=== PATIENT | male | born 1950 | race Caucasian/White ===

== ENCOUNTER 2017-01-23 06:55 | Inpatient (IN) | payer MEDICARE, OTHER ==
[~2017-01-23] VITALS: Ht 175.3 cm; Wt 113.4 kg
[~2017-01-23 06:55] MED LIST: ANASTROZOLE1 MG PO; ARMOUR THYROID60 MG PO; ASCORBIC ACID; B COMPLEX1 EACH PO; CALCIUM + VITA1 EACH PO; CARVEDILOL12.5 MG PO; CHROMIUM PICO200 MCG PO; COPPER2 M1 PO; COPPER2 MG PO; CORTEF10 MG PO; CYCLOBENZAPRINE10 MG PO; DHEA25 M1 PO; ELIQUIS5 MG PO; GLUCOSAMINE1000 MG PO; HYDROCORTISONE5 MG PO; LEVAQUIN500 MG PO; MAGNESIUM; MEGA TAURINE1000 MG PO; METHYLFOLATE PO; MSM1000 M1 PO; NORCO 5-325 TA1 EACH PO; PANCREATIN 8X1 GM PO; PHENYTOIN SODI100 MG PO; POTASSIUM CHLO10 ME1 PO; POTASSIUM CITRATE PO; PROBIOTIC1 EAC1 PO; SELENIUM200 MC2 PO; SELENIUM200 MCG PO; VITAMIN A10000 UNIT PO; VITAMIN B-125000 MC1 PO; VITAMIN D35000 UNIT PO; VITAMIN D5000 UNIT PO; ZINC50 M1 PO; ZITHROMAX250 MG PO; [UNRECOGNIZED DRUG - OTHER]; [UNRECOGNIZED DRUG - OTHER]; [UNRECOGNIZED DRUG - OTHER] MISC; [UNRECOGNIZED DRUG - OTHER] PO; [UNRECOGNIZED DRUG - OTHER] PO; [UNRECOGNIZED DRUG - OTHER] TOP
[2017-02-24] MEDS ORDERED: BISOPROLOL FUMA10 MG PO (06:29)
[2017-02-24] MEDS ORDERED: ANASTROZOLE1 MG PO (06:30)
[2017-02-24] MEDS ORDERED: ATP25 MG PO (06:32)
[2017-02-24] MEDS ORDERED: HYDROCORTISONE5 MG PO (17:00)
[2017-02-24] MEDS ORDERED: TESTOSTERONE75 GM TOP (17:09)
[2017-02-26] MEDS ORDERED: OXYCODONE HCL5 MG PO (08:31)
[2017-02-26] MEDS ORDERED: HYDROCODON-ACE1 EA11 PO (08:31)
--- NOTE | 2017-03-03 09:57 | OR ---
[facility] [address], [place] [address] Signed DATE OF SERVICE: 02/26/2017 ADMISSION DIAGNOSIS: Degenerative joint disease, right knee. POSTOPERATIVE DIAGNOSIS: Degenerative joint disease, right knee. PROCEDURE PERFORMED: Right total knee arthroplasty. BRIEF HISTORY: Mr. Baldwin is a 58-year-old gentleman, who has undergone nonoperative treatment for his degenerative joint disease and had had no recent success. Risks, benefits, and alternatives of operative treatment were discussed with him. He elected to proceed. Once consent was obtained, he was taken to the operating room. After adequate anesthesia, he underwent the above-named procedures. He tolerated this well. He was taken to recovery room, subsequently to orthopedic floor. He was placed on oral pain medication of oxycodone and Stevens with good pain relief. DVT prophylaxis was initially Xarelto 10 mg p.o. daily. He will be switched to his Eliquis now. He was seen by Physical Therapy and able to ambulate him down the hallway and down the stairs by the day of discharge. He will be discharged to home with outpatient physical therapy and above medications. He will notify me if there are any problems in the interim. Joanne Mc MD BA/Sondral /[id number] Electronically Signed By: JOANNE MC MD 03/03/17 0957 PATIENT NAME: LISSETT BALDWIN OPERATIVE REPORT DATE OF : 46 PHYSICIAN: JOANNE MC MD REPORT #: [id number] REPORT IS CONFIDENTIAL AND NOT TO BE RELEASED WITHOUT AUTHORIZATION
== END 2017-02-26 13:05 | disposition home or self-care (01) | DRG 470 ==
LOC: DSVR 02-24 05:45 → MS 02-24 05:45
PROVIDERS: ADMIT Specialist
PROC: 0SRC0J9 Replacement of Right Knee Joint with Synthetic Substitute, Cemented, Open Approach (ICD-10-PCS; principal; 2017-02-24 06:45)
DX: M17.11 Unilateral primary osteoarthritis, right knee (principal); E27.40 Unspecified adrenocortical insufficiency; I50.20 Unspecified systolic (congestive) heart failure; E03.9 Hypothyroidism, unspecified; G47.33 Obstructive sleep apnea (adult) (pediatric); Z79.01 Long term (current) use of anticoagulants; I48.2 Chronic atrial fibrillation; I11.0 Hypertensive heart disease with heart failure; I25.10 Atherosclerotic heart disease of native coronary artery without angina pectoris; G89.18 Other acute postprocedural pain
CPT/HCPCS: 01402; 36415; 64447; 76942; 80048; 85025; 94762; 97110; 97116; 97162; C1713; C1776; J0690; J1100; J1720; J1885; J2250; J2274; J2550; J2704; J2795; J3010; J7120

== ENCOUNTER 2021-07-02 05:40 | Day surgery (SDC) | payer MEDICARE, OTHER ==
--- NOTE | 2021-06-19 17:03 | NUR ---
DOS: 07-02-21 STAIRS: 3 STEPS INTO THE HOME WALKER: HAS ONE AND INSTRUCTED TO BRING WITH HIM THE DAY OF SURGERY. ALSO HAS A CANE WHEN HE IS ABLE TO USE IT. SHOWER: SMALL STEP INTO THE SHOWER WITH A SHOWER CHAIR AND GRAB BAR TOLITES: ARE TALL AND HAS A RISER IF NOT TALL ENOUGH. APPOINTMENT AND PHYSICAL THERAPY: ROEL GET HIM TO ALL HIS APPOINTMENT AND TAKE CARE OF HIM AT THE HOUSE. PT ALSO USES CPAP AND ROEL BRING IT WITH HIM ON THE DAY OF SURGERY.
[~2021-07-02] VITALS: Ht 175.3 cm; Wt 104.5 kg
[~2021-07-02 05:40] MED LIST changes: +ATP25 MG PO; +BISOPROLOL FUMA10 MG PO; +DIGOXIN125 MCG PO; +HYDROCODON-ACE1 EA11 PO; +OXYCODONE HCL5 MG PO; +TESTOSTERONE75 GM TOP
[2021-07-02] MEDS ORDERED: OXYCODONE HCL5 MG PO (09:13)
[2021-07-02] MEDS ORDERED: SENNA LAX8.6 MG PO (09:14)
[2021-07-02] MEDS ORDERED: GABAPENTIN300 MG PO (09:14)
--- NOTE | 2021-07-02 10:20 | NUR ---
PATIENT BACK TO ROOM FROM PACU ON RA. RECEIVED REPORT FROM DARÍO LENZ. PATIENT IS AWAKE. VSS. RATES PAIN 2/10 AND DENIES NAUSEA. PATIENTS UPPER DRESSING HAS A SMALL AMOUNT OF RED DRAINAGE. 2 LOWER DRESSINGS ARE CLEAN, DRY, AND INTACT. CRYO CUFF IN PLACE. GIVEN PAIN RX AND SHE LEFT TO GO TO PHARMACY. WATER, JELLO, AND CRACKERS GIVEN TO CAMILLA. CALL LIGHT WITHIN REACH.
--- NOTE | 2021-07-02 10:32 | NUR ---
[facility] ARRIVED IN PACU REACTIVE WITH OPA IN PLACE. 0911 OPA REMOVED. MOVING BILAT LEGS. 0915 PELVIS XRAY DONE. PT BENDING R LEG. REMINDED TO KEEP STRAIGHT. 0920 DR AT BEDSIDE. VERBAL ORDER GIVEN TO PLACE ADDUCTION SPLINT TO HELP KEEP RIGHT LEG STRAIGHT. 0925 SPLINT [address]ACED. PT PULLING AT CLOTHES AND IV TUBING. REMINDED OF PERSON, PLACE AND TIME. 0940 C/O R HIP PAIN AND TRYING TO PULL GOWN OFF. REMINDED PT SURGERY IS OVER. 0945 ANESTHESIA AT BEDSIDE AND BLOCK DONE. PT TOLERATED WELL. 1000 PAIN DOWN TO DULL ACHE. UNABLE TO RATE AT THIS TIME. 1005 TO DS. AT BEDSIDE. 1015 CRYO CUFF PLACED ON R HIP. REPORT GIVEN TO RN.
--- NOTE | 2021-07-02 11:37 | NUR ---
PATIENT AWAKE AND LAYING IN BED. RATES PAIN 1/10. DENIES NAUSEA. VSS. UPPER DRESSING HAS A SAMLL AMOUNT OF DRAINAGE. 2 LOWER DRESSINGS ARE CLEAN, DRY, AND INTACT. CRYO CUFF IN PLACE. PATIENT HAS BEEN DRINKING WATER. CALL LIGHT WITHIN REACH.
--- NOTE | 2021-07-02 12:40 | NUR ---
CAMILLA VOIDED 325ML USING THE URINAL AT BEDSIDE. RECHECKED BP WITH NORMAL RESULTS. LUNCH ORDERED.
--- NOTE | 2021-07-02 13:25 | NUR ---
PATIENT AWAKE LAYING IN BED. VSS. RATES PAIN 1/10. DENIES NAUSEA. UPPER DRESSING HAS A SMALL AMOUNT OF RED DRAINAGE AND THE TWO LOWER DRESSINGS ARE CLEAN, DRY, AND INTACT. CRYO CUFF IN PLACE. AT BEDSIDE. CALL LIGHT WITHIN REACH.
--- NOTE | 2021-07-02 13:50 | NUR ---
1350-PHYSICAL THERAPY IN WITH PATIENT. 1355-PATIENT STATES WHEN HE LIFTED HIS RIGH LEG OFF THE BED HE "FELT A LOUD POP" IN HIS RIGHT GROIN. RATES PAIN "12/10" REQUESTING PAIN MEDICATION. 1405-TALKED TO DR. ORTIZ ABOUT SITUATION. DR. ORTIZ STATES THAT WILL HAPPEN WITH A HIP.. 1409-REASSURED PATIENT ABOUT THE INFOMRATION RECEIVED FROM DR. ORTIZ. PAIN MEDICATION GIVEN PER EMAR. PATIENT RATES PAIN 1/10 WHEN LAYING IN BED AND 10/10 WHEN HER MOVES HIS RIGHT LEG. PATEINT WILL TRY PT AGAIN IN A LITTLE WHILE. 1426-PT BACK IN WITH PATIENT.
--- NOTE | 2021-07-02 14:12 | NUR ---
due to reported oxycodone allergy, post-op oxycodone order was changed to hydrocodone 7.5mg/APAP 325mg, 1 tablet q4-6h prn pain
--- NOTE | 2021-07-02 14:45 | NUR ---
1445-PATIENT BACK TO ROOM FROM PHYSICAL THERAPY. 1455-PATINET SITTING AT THE EDGE OF BED. VSS. RATES PAIN 4/10 DENIES NAUSEA. UPPER DRESSING HAS MODERATE AMOUNT OF RED DRAINAGE. LOWER TWO DRESSINGS HAVE 2 SPOTS OF RED DRAINAGE. AT BEDSIDE. PATIENT IS READY TO GO HOME. 1500-RX FOR OXYCODONE WAS FILLED AT PHARMACY. PATIENT STATES HE DIDNT TOLERATE THIS MEDICATION AND WOULD LIKE HYDROCODONE. SPOKE TO DR. ORTIZ AND HE WILL SEND NEW RX.
--- NOTE | 2021-07-02 15:30 | NUR ---
PROVIDE PATIENT WITH DISCHARGE INSTRUCTIONS. PATIENT VERBALIZED UNDERSTANDING AND ALL QUESTIONS WERE ANSWERED. IN ROOM FOR DISCHARGE INSTRUCTIONS. PATIENT AMBULATES WITH WALKER TO WHEELCHAIR. PROVIDED WHEELCHAIR TO FRONT OF HOSPIAL WHERE WAS WAITING WITH CAR. RATES PAIN 4/10 BUT TOLERABLE FOR HIM.
--- NOTE | 2021-07-05 10:30 | OR ---
[facility] [address] [place], [place] [address] Signed DATE OF OPERATION: 07/02/2021 SURGEON: Joanne Mc MD PREOPERATIVE DIAGNOSIS: Avascular necrosis, right hip. POSTOPERATIVE DIAGNOSIS: Avascular necrosis, right hip. PROCEDURE PERFORMED: Right total hip arthroplasty with Arthur. PURIFICATION DIRECTOR: Radha Kirby PA-C. Radha was present and critical for all portions of procedure. ANESTHESIA: Spinal. BLOOD LOSS: 200 mL. IMPLANTS: Meridian size 6, Accolade II stem with a 54 cup and -5 head. BRIEF HISTORY: Luis is a 71-year-old gentleman with painful hip arthritis and AVN. Risks and benefits of operative treatment were discussed with him and he elected to proceed. DESCRIPTION OF PROCEDURE: Once consent was obtained, he was taken to the operating room. After adequate anesthesia, he was placed in the left lateral decubitus position with an axillary roll. in place. Downside pressure points were all padded and the leg was prepped and draped The three pins for the Arthur system were then placed percutaneously into the iliac crest three fingerbreadths posterior to the ASIS. The attention was then turned to the actual approach. A standard anterolateral Cantu-Cid approach was taken through skin and subcutaneous tissue. The IT band was divided longitudinally. The vastus lateralis was then split from the anterior superior aspect of the greater trochanter distally and elevated subperiosteally around the level of the lesser Electronically Signed By: JOANNE MC MD 07/02/21 3065 Electronically Signed By: JOANNE MC MD 07/06/21 7555 PATIENT NAME: LUIS CID OPERATIVE REPORT DATE OF : 46 REPORT #: [id number] PHYSICIAN: JOANNE MC MD PCP: KALLIE BUSTAMANTE PAC REPORT IS CONFIDENTIAL AND NOT TO BE RELEASED WITHOUT AUTHORIZATION [facility] [address] [place], [place] [address] Signed trochanter. We then split between the gluteus medius and TFL anteriorly with care taken to secure the bleeders. Once this was accomplished, the hip was rotated and capsulotomy was performed. The capsule was elevated off the anterior femoral neck again around to the previous resection. We attempted to dislocate the hip. We could not comfortably do it. We then made a cut in situ one fingerbreadth above the lesser trochanter. The femoral head was then removed and all periacetabular soft tissue was removed. Prior to this, we did register the leg lengths. The acetabular registration was then undertaken with good landmarks. The robot was then brought in and the acetabulum was reamed initially with 52 and then a 54, 40 degrees of abduction and 20 of anteversion. Once we had completed this, we then impacted the cup until it was well-seated. Two screws were placed in the posterosuperior quadrant. The polyethylene liner was then impacted. Attention was then turned to the proximal femur, which was opened using the rebecca cutter followed by the Cesia stahl. We then reamed with a cone reamer and broached from a 5 to 6, 6 was found to be well fitting and had no motion to it. We then placed a 127 neck and 0 head. We then reduced the hip, but it was long with a little bit too much offset. We then dislocated the hip and placed a -5 and found good leg lengths and good offset. The hip was again dislocated and the trials were removed. The final stem was then impacted to the same level as the trochanter. The -5 head was impacted and then the hip was reduced with excellent leg lengths and offset. Once this was accomplished, the wound was copiously irrigated with normal saline. We injected the perioperative soft tissue with 100 mL ropivacaine-Toradol mixture. The capsule was then closed using #1 Vicryl, the vastus and IT band layers were closed independently using #2 Stratafix, subcutaneous tissue with #0 Stratafix, and skin with 3-0 Stratafix. Steri-Strips were applied. The wound was then dressed with Acticoat 7 dressing. He was awakened and taken to the recovery room in satisfactory condition. All sponge, needle, and instrument counts were correct. Joanne Mc MD BA/MODL /[id number] Electronically Signed By: JOANNE MC MD 07/02/21 1619 Electronically Signed By: JOANNE MC MD 07/06/21 1209 PATIENT NAME: LUSI CID OPERATIVE REPORT DATE OF : 46 REPORT #: [id number] PHYSICIAN: JOANNE MC MD PCP: KALLIE BUSTAMANTE PAC REPORT IS CONFIDENTIAL AND NOT TO BE RELEASED WITHOUT AUTHORIZATION [address] [address] Signed Copies: ~ Electronically Signed By: JOANNE MC MD 07/02/21 1619 Electronically Signed By: JOANNE MC MD 07/06/21 1209 PATIENT NAME: LUIS CID OPERATIVE REPORT DATE OF : 46 REPORT #: [id number] PHYSICIAN: JOANNE MC MD PCP: KALLIE BUSTAMANTE REPORT IS CONFIDENTIAL AND NOT TO BE RELEASED WITHOUT AUTHORIZATION
== END 2021-07-02 15:30 | disposition home or self-care (01) ==
LOC: DS 05:40
PROVIDERS: ATTEND Specialist
PROC: 0SR90JZ Replacement of Right Hip Joint with Synthetic Substitute, Open Approach (ICD-10-PCS; principal; 2021-07-02 06:45)
DX: M87.851 Other osteonecrosis, right femur (principal); M16.11 Unilateral primary osteoarthritis, right hip; G89.18 Other acute postprocedural pain; G47.33 Obstructive sleep apnea (adult) (pediatric); I48.91 Unspecified atrial fibrillation; I45.10 Unspecified right bundle-branch block; E03.9 Hypothyroidism, unspecified; K21.9 Gastro-esophageal reflux disease without esophagitis; K76.0 Fatty (change of) liver, not elsewhere classified; Z88.7 Allergy status to serum and vaccine; Z88.1 Allergy status to other antibiotic agents; Z88.5 Allergy status to narcotic agent; Z87.891 Personal history of nicotine dependence; Z79.01 Long term (current) use of anticoagulants
CPT/HCPCS: 01214; 72170; 97161; A9270; C1713; C1776; J0690; J1100; J1885; J2001; J2250; J2704; J2795; J3010; J7040; J7121